=== PATIENT | male | born 1975 | race Caucasian/White ===

== ENCOUNTER 2024-11-01 16:35 | Emergency (ER) | payer MEDICAID ==
[~2024-11-01] VITALS: Ht 152.4 cm; Wt 102.7 kg
[2024-11-01 16:40] VITALS: BP 148/93; PULSE 88; RESP 16; TEMP 98.5; O2SAT 98
[2024-11-01] MEDS ORDERED: INSLAN SQ ×2 (16:40)
[2024-11-01] MEDS ORDERED: METF-1211 PO (16:40)
[2024-11-01 16:56] LABS: GLUCOMETER DEV NAME(LOC) ERT.6; GLUCOSE,POINT OF CARE 100 MG/DL (70-110)
[2024-11-01] MEDS ORDERED: CEPH-558 PO (17:35)
== END 2024-11-01 17:55 | disposition home or self-care (01) ==
LOC: EMS 16:41
DX: R60.0 Localized edema (principal); E11.9 Type 2 diabetes mellitus without complications; Z79.4 Long term (current) use of insulin
CPT/HCPCS: 82962; 99284